=== PATIENT | female | born 1985 | race Caucasian/White ===

== ENCOUNTER → 2022-08-07 | Outpatient (CLI) | payer BC ==
[2022-08-07 16:16] VITALS: BP 133/84; PULSE 93; TEMP 98.8; BMI 36.0
--- NOTE | 2022-08-07 16:25 | P.HPBAR ---
Bariatric H&P - History & Physicial H&P Date: 08/07/22 History & Physicial: Visit/CC: new patient Patient initial contact: Initial weight: Initial weight in pounds: Height: 5 ft 5.5 in Initial BMI: Last weight: Current weight: 99.79 kg Current weight in pounds: 220.00 Current BMI: 36.0 Gray body weight (based on NIH guidelines): 57.833 kg Excess body weight loss: The patient is a 36 year-old F who presents for Bariatric Assessment. She is looking for weight loss surgery. She has tried Nutri system, Oma Jean-Paul, supervised weight loss, Weight Watchers and counting calories. She has fibromyalgia. Highest weight is now. Most weight loss is 60 pounds. She is on Adipex equivalent. She reports feeling full faster with Xenacal. Mother is undergoing weight loss surgery. She is looking into the sleeve. She reports colits, heart condition, and troubles with her knees. She has heartburn. She reports occasional GERD and dysphagia. She denies abdominal surgery. Still has gallbaldder. No gallbladder problem in family. She had an ECHO in 2014. Past Medical History History of Any Multi-Drug Resistant Organisms: None Reported Smoking Status: Former smoker Surgical - Exam Vital Signs Temp Pulse BP 98.8 F 93 133/84 08/07/22 16:06 08/07/22 16:06 08/07/22 16:06 Bariatric Checklist Checklist: Plan: Checklist: EGD: 1. Hiatal hernia: 2. H. Pylori: HgbA1c: Vitamin D: Smoking: Primary care physician referral: Dr. Vargas Psychiatry clearance: Cardiology clearance: Sleep study: Diet journal: VTE risk score: VTE risk level: Rehab needs at discharge:
== END | disposition home or self-care (01) ==
LOC: BARWHC3 15:51
PROVIDERS: ATTEND Surgery Plastic and Reconstructive Surgery
DX: Z48.815 Encounter for surgical aftercare following surgery on the digestive system (principal)
CPT/HCPCS: 99213

== ENCOUNTER → 2022-08-17 | Outpatient (CLI) | payer BC ==
[2022-08-17 09:55] LABS: INR 0.9 (<1.2)
[2022-08-17 10:02] LABS: Partial Thromboplastin Time 21.9 sec (22.0-30.0)
[2022-08-17 16:19] LABS: HCT 37.3 % (37.2-46.3); HGB 11.7 g/dL (12.0-15.0); MCH 28.9 pg (27.0-32.0); MCHC 31.4 g/dL (32.0-37.0); MCV 92.1 fL (80.0-97.0); Mean Platelet Volume 10.7 fL (9.5-12.2); NRBC Per 100 WBC 0 /100 WBCS (0.0-0.0); Platelet Count 264 X 10*3/uL (140-440); RBC 4.05 X 10*6/uL (4.10-5.20); RDW 13.6 % (11.5-14.5); WBC 6.14 X 10*3/uL (4.50-10.00)
[2022-08-17 18:06] LABS: Chol/HDL Ratio 2.89 Ratio; LDL Cholesterol,Calculated 105.7 mg/dL (0.0-131.0); Prealbumin 21.5 mg/dL (18.0-42.0); VLDL Calculation 16.74 mg/dL (5.00-40.00)
[2022-08-17 18:17] LABS: ALT 14 U/L (8-44); AST 19 U/L (13-35); African American GFR (CKD) 78.2 (60.0-200.0); Albumin 4.2 g/dL (3.8-4.9); Albumin/Globulin Ratio 1.77 (1.60-3.17); Alkaline Phosphatase 67 U/L (41-126); Blood Urea Nitrogen 10.6 mg/dL (9.0-27.0); Carbon Dioxide 22.8 mmol/L (20.0-27.5); Chloride 106 mmol/L (96-109); Ferritin 11.8 ng/mL (10.0-291.0); Globulin 2.4 g/dL (1.6-3.3); Glucose 82 mg/dL (70-110); Iron 42 ug/dL (50-170); Non-African American GFR(CKD) 67.5 (60.0-200.0); Phosphorus 2.9 mg/dL (2.4-5.1); Potassium 3.8 mmol/L (3.5-5.5); Sodium 141 mmol/L (135-145); Total Iron Binding Capacity 381 ug/dL (228-460); Total Protein 6.5 g/dL (6.2-8.2)
[2022-08-19 08:17] LABS: Anabasine Urine <2.0 ng/mL (<2.0)
[2022-08-19 12:12] LABS: Zinc, Serum 80 ug/dL (60-130)
[2022-08-20 08:29] LABS: Vitamin A 61 ug/dL (38-106)
== END | disposition home or self-care (01) ==
LOC: LABWHC1 08:47
PROVIDERS: ATTEND Surgery Plastic and Reconstructive Surgery
DX: Z71.51 Drug abuse counseling and surveillance of drug abuser (principal); I49.8 Other specified cardiac arrhythmias; T56.894A Toxic effect of other metals, undetermined, initial encounter; E66.01 Morbid (severe) obesity due to excess calories; D50.8 Other iron deficiency anemias; K91.2 Postsurgical malabsorption, not elsewhere classified; E45 Retarded development following protein-calorie malnutrition; E55.9 Vitamin D deficiency, unspecified; K74.1 Hepatic sclerosis; N19 Unspecified kidney failure; K50.90 Crohn's disease, unspecified, without complications
CPT/HCPCS: 84255; 84134; 84425; 80061; 80053; 82607; 82728; 82525; 82746; 83540; 83550; 83735; 84100; 84443; 84590; 84630; 85027; 85610; 85730; 82306; 80323; 83970; 83036; 80307; 93005; 36415; G0482

== ENCOUNTER 2022-09-02 07:43 | Day surgery (SDC) | payer BC ==
[2022-08-28 13:31] VITALS: BMI 34.4
[~2022-09-02 07:43] MED LIST: LACTATED RINGERS 1,000 ML IV SCH
[2022-09-02 08:23] VITALS: TEMP 98.3
--- NOTE | 2022-09-02 08:44 | P.GSHP ---
History of Present Illness H&P Date: 09/02/22 CHIEF COMPLAINT: GERD HISTORY OF PRESENT ILLNESS: The patient is a 37-year-old female who presents reports gastroesophageal reflux disease. Upper endoscopy was offered for further evaluation and management. PAST MEDICAL HISTORY: Please see list. PAST SURGICAL HISTORY: Please see list. MEDICATIONS: Please see list. ALLERGIES: Please see list. SOCIAL HISTORY: No illicit drug use FAMILY HISTORY: No reports of Crohn disease or ulcerative colitis. REVIEW OF ORGAN SYSTEMS: CONSTITUTIONAL: No reports of fevers or chills. GI: Denies any blood in stools or constipation. PHYSICAL EXAM: VITAL SIGNS: Stable GENERAL: Well-developed and pleasant in no acute distress. HEENT: No scleral icterus. Extraocular movements grossly intact. Moist buccal mucosa. NECK: Supple without lymphadenopathy. CHEST: Unlabored respirations. Equal bilateral excursions. CARDIOVASCULAR: Regular rate and rhythm. Distal 2+ pulses. ABDOMEN: Soft, nondistended. MUSCULOSKELETAL: No clubbing, cyanosis, or edema. ASSESSMENT: 1. Gastroesophageal reflux disease PLAN: 1. Recommend proceeding with an upper endoscopy Past Medical History Past Medical History: Asthma, Fibromyalgia, Supraventricular Tachycardia (SVT) Additional Past Medical History / Comment(s): Colitis History of Any Multi-Drug Resistant Organisms: None Reported Past Surgical History: Breast Surgery Additional Past Surgical History / Comment(s): Pre cancerous mole removed off head 2020. Breast implants 2019 Past Anesthesia/Blood Transfusion Reactions: No Reported Reaction Past Psychological History: ADD/ADHD, Anxiety, Bipolar, Depression, Panic Disorder Smoking Status: Former smoker Past Alcohol Use History: Occasional Past Drug Use History: None Reported - Past Family History Mother Family Medical History: No Reported History Father Family Medical History: Deep Vein Thrombosis (DVT) Medications and Allergies Home Medications Medication Instructions Recorded Confirmed Type ALPRAZolam [Xanax] 1 mg PO Q8H PRN 08/07/22 09/02/22 History ARIPiprazole [Abilify] 5 mg PO HS 08/07/22 09/02/22 History Biotin 5 mg PO DAILY 08/07/22 09/02/22 History Cholecalciferol [Vitamin D3 (10 10 mcg PO DAILY 08/07/22 09/02/22 History Mcg = 400 Iu)] Citalopram Hydrobromide [CeleXA] 20 mg PO HS 08/07/22 09/02/22 History Metoprolol Succinate [Metoprolol 25 mg PO DAILY 08/07/22 09/02/22 History Succinate ER] [place]-3/Dha/Epa/Fish Oil [Fish Oil 1 each PO DAILY 08/07/22 09/02/22 History 1,000 mg Softgel] Zonisamide [Zonegran] 300 mg PO HS 08/07/22 09/02/22 History clonazePAM [KlonoPIN] 0.5 mg PO HS PRN 08/07/22 09/02/22 History lamoTRIgine [LaMICtal] 100 mg PO DAILY 08/07/22 09/02/22 History Allergies Allergy/AdvReac Type Severity Reaction Status Date / Time No Known Allergies Allergy Verified 09/02/22 08:04 Surgical - Exam Vital Signs Temp Pulse Resp BP Pulse Ox 98.3 F 88 15 119/58 98 09/02/22 08:21 09/02/22 08:21 09/02/22 08:21 09/02/22 08:21 09/02/22 08:21
[2022-09-02] MEDS ORDERED: PROPOFOL 10 MG/ML 20 ML VIAL IV ONE (09:08)
[2022-09-02] MEDS ORDERED: LIDOCAINE 2% INJ 20 MG/ML (2 ML VIAL) ONE (09:08)
[2022-09-02 09:25] VITALS: RESP 16
--- NOTE | 2022-09-02 09:30 | P.PCN ---
Date of Procedure: 09/02/22 Description of Procedure: PREOPERATIVE DIAGNOSIS: Gastroesophageal reflux disease. Morbid obesity. POSTOPERATIVE DIAGNOSIS: Gastroesophageal reflux disease. Morbid obesity. Gastritis. Duodenitis OPERATION: Esophagogastroduodenoscopy with biopsies along antrum and duodenum SURGEON: Ghazal Marinelli MD ANESTHESIA: MAC. INDICATIONS: The patient is a 37-year-old female who presents with reflux disease. Benefits and risks of the procedure were described. Informed consent was obtained. DESCRIPTION: The patient was brought into the endoscopy suite and laid in the left lateral decubitus position. An Olympus gastroscope was passed along the posterior oropharynx down to the distal esophagus where the squamocolumnar junction was encountered at 37 cm from the incisors. The stomach was entered and no bile reflux was found. Additional findings are listed below. Biopsies with cold forceps were obtained of the antrum. The first through third portion of the duodenum was examined. Retroflexion of the scope confirmed Hill grade 2 lower esophageal valve. The squamocolumnar junction demonstrated LA grade B erosive esophagitis. The stomach was desufflated. The patient tolerated the procedure well. FINDINGS: Squamocolumnar junction 37 cm from the incisors. Diaphragmatic hiatus at 37 cm. Hill grade 2 lower esophageal valve. LA grade B erosive esophagitis. Active duodenitis. Biopsies obtained Chronic gastritis with recent bleed RECOMMENDATIONS: Upper endoscopy as needed. Plan - Discharge Summary Discharge Rx Participant: Yes New Discharge Prescriptions: Continue clonazePAM [KlonoPIN] 0.5 mg PO HS PRN PRN Reason: Anxiety ALPRAZolam [Xanax] 1 mg PO Q8H PRN PRN Reason: Anxiety Zonisamide [Zonegran] 300 mg PO HS Citalopram Hydrobromide [CeleXA] 20 mg PO HS ARIPiprazole [Abilify] 5 mg PO HS Cholecalciferol [Vitamin D3 (10 Mcg = 400 Iu)] 10 mcg PO DAILY lamoTRIgine [LaMICtal] 100 mg PO DAILY Metoprolol Succinate [Metoprolol Succinate ER] 25 mg PO DAILY [place]-3/Dha/Epa/Fish Oil [Fish Oil 1,000 mg Softgel] 1 each PO DAILY Biotin 5 mg PO DAILY Discharge Medication List ALPRAZolam [Xanax] 1 mg PO Q8H PRN 08/07/22 [History] ARIPiprazole [Abilify] 5 mg PO HS 11/16/22 [History] Biotin 5 mg PO DAILY 08/07/22 [History] Cholecalciferol [Vitamin D3 (10 Mcg = 400 Iu)] 10 mcg PO DAILY 08/07/22 [History] Citalopram Hydrobromide [CeleXA] 20 mg PO HS 08/07/22 [History] Metoprolol Succinate [Metoprolol Succinate ER] 25 mg PO DAILY 08/07/22 [History] [place]-3/Dha/Epa/Fish Oil [Fish Oil 1,000 mg Softgel] 1 each PO DAILY 08/07/22 [History] Zonisamide [Zonegran] 300 mg PO HS 08/07/22 [History] clonazePAM [KlonoPIN] 0.5 mg PO HS PRN 08/07/22 [History] lamoTRIgine [LaMICtal] 100 mg PO DAILY 08/07/22 [History] [place] [facility]Ref[place] [facility] [place] [place] [facility] [place] Patient Instructions/Handouts: GERD (Gastroesophageal Reflux Disease) (DC), Diet for Stomach Ulcers and Gastritis (ED) Discharge Disposition: HOME SELF-CARE
[2022-09-02 09:41] VITALS: BP 116/69; PULSE 72
== END 2022-09-02 10:08 | disposition home or self-care (01) ==
LOC: ORWHC2ENDO 07:43
PROVIDERS: ATTEND Surgery Plastic and Reconstructive Surgery
DX: K29.50 Unspecified chronic gastritis without bleeding (principal); K21.00 Gastro-esophageal reflux disease with esophagitis, without bleeding; E66.01 Morbid (severe) obesity due to excess calories; K29.80 Duodenitis without bleeding; M79.7 Fibromyalgia; F41.9 Anxiety disorder, unspecified; F32.A Depression, unspecified; J45.909 Unspecified asthma, uncomplicated; Z85.820 Personal history of malignant melanoma of skin; Z79.899 Other long term (current) drug therapy; Z87.891 Personal history of nicotine dependence; Z86.59 Personal history of other mental and behavioral disorders; Z82.49 Family history of ischemic heart disease and other diseases of the circulatory system
CPT/HCPCS: 81025; 88305; 43239; J2704; J2001

== ENCOUNTER → 2022-09-23 | Outpatient (CLI) | payer BC ==
[2022-09-23 10:36] VITALS: BMI 37.8
== END ==
LOC: BARWHC3 08:49
PROVIDERS: ATTEND Surgery Plastic and Reconstructive Surgery
DX: Z71.3 Dietary counseling and surveillance (principal); E66.01 Morbid (severe) obesity due to excess calories; Z68.37 Body mass index [BMI] 37.0-37.9, adult
CPT/HCPCS: 97804

== ENCOUNTER → 2022-11-01 | Outpatient (CLI) | payer BC ==
--- NOTE | 2022-11-01 09:46 | P.BASOAP ---
Subjective Progress Note Date: 11/01/22 Doing well. Recommend return to work after 2 weeks due to compromised immune system. Recommend wearing masks. Adequate IV fluid hydration. Follow-up in 1 week. Assessment/Plan Plan: Date: Initial Weight: 99.79 kg Initial BMI: Current Weight: Current BMI: Type of Surgery: Total Volume in Band: Previous Volume: Volume Removed: Volume Added: Band Size:
--- NOTE | 2022-11-01 09:48 | P.PN ---
Progress Note - Text Progress Note Date: 11/01/22 To Whom It May Concern: Naina Copeland is under my general surgical care. Patient is unable to work during her time of convalescence. She may return to work with exertional restriction of 10 pounds, 11/11/2022. She will be off exertional restrictions 11/25/2022. Feel free to contact us if questions. Regards, Ghazal Marinelli MD FACS
[2022-11-01 10:16] VITALS: BP 129/85; PULSE 67; RESP 13; TEMP 99.7
== END ==
LOC: BARWHC3 08:41
PROVIDERS: ATTEND Surgery Plastic and Reconstructive Surgery
DX: E66.01 Morbid (severe) obesity due to excess calories (principal); Z53.9 Procedure and treatment not carried out, unspecified reason
CPT/HCPCS: 99211

== ENCOUNTER → 2022-11-27 | Outpatient (CLI) | payer BC ==
[2022-11-27 17:34] VITALS: BP 143/89; PULSE 81; TEMP 99.1; BMI 31.8
--- NOTE | 2022-11-27 18:08 | P.BASOAP ---
Subjective Progress Note Date: 11/27/22 DATE OF SERVICE: 11/27/22 CHIEF COMPLAINT: Status post sleeve gastrectomy HISTORY OF PRESENT ILLNESS: The patient is a 37-year-old female status post sleeve gastrectomy, 10/29/2022. She is 1 month out. She has lost 15 pounds. She was 227 pounds. No heartburn. She is eating better. She had dysphagia that is improving. At height of 5 feet 5 inches, her ideal body weight is 149 pounds. Her highest weight is 227 pounds, body mass index 37.3. She comes in 194 pounds from 201 pounds 3 weeks ago. She has lost 7 pounds in 3 weeks. She is 45 pounds overweight. PHYSICAL EXAM: VITAL SIGNS: Height 5 foot 5.5 inches, 194 pounds, BMI 31.8 Vital Signs Temp 99.1 F 11/27/22 17:31 Pulse 81 11/27/22 17:31 Resp BP 143/89 11/27/22 17:31 Pulse Ox FiO2 GENERAL: Well-developed in no acute distress. HEENT: No scleral icterus. Extraocular movements grossly intact. Hears conversational speech. No nasal drainage. NECK: Supple without lymphadenopathy. CHEST: Nonlabored respirations with equal bilateral excursions. CARDIOVASCULAR: Regular rate and regular rhythm. Distal 2+ pulses. ABDOMEN: Obese, soft, nontender, nondistended. Incisions are granulated. MUSCULOSKELETAL: No clubbing, cyanosis. NEURO: No focal or lateralizing signs. Cranial nerves 2 through 12 grossly within normal limits. PSYCH: Appropriate affect. Alert and oriented to person, place and time. SKIN: Good skin turgor. Well perfused. ASSESSMENT: 1. Morbid obesity due to excess calories 2. Body mass index 37.3 3. Depressive disorder 4. Supraventricular tachycardia 5. Generalized anxiety disorder 6. Osteoarthritis of the lower back 7. Osteoarthritis of the right hip 8. Osteoarthritis of the bilateral knees. 9. Status post sleeve gastrectomy PLAN: 1. Recommened bariatric labs 2. Protein intake 75 grams daily advised. 3. Start multivitamins 4. May resume full activities without restriction. Objective - Vital Signs Vital signs: Vital Signs Temp 99.1 F 11/27/22 17:31 Pulse 81 11/27/22 17:31 Resp BP 143/89 11/27/22 17:31 Pulse Ox FiO2 Intake & Output 11/26/22 11/27/22 11/27/22 18:59 06:59 18:59 Weight 88.088 kg Assessment/Plan Plan: Date: 11/27/22 Initial Weight: 99.79 kg Initial BMI: 36.0 Current Weight: 88.088 kg Current BMI: 31.8 Type of Surgery: Total Volume in Band: Previous Volume: Volume Removed: Volume Added: Band Size:
== END ==
LOC: BARWHC3 16:56
PROVIDERS: ATTEND Surgery Plastic and Reconstructive Surgery
DX: E66.01 Morbid (severe) obesity due to excess calories (principal); F41.9 Anxiety disorder, unspecified; F33.0 Major depressive disorder, recurrent, mild; M16.11 Unilateral primary osteoarthritis, right hip; Z68.37 Body mass index [BMI] 37.0-37.9, adult; Z68.31 Body mass index [BMI] 31.0-31.9, adult
CPT/HCPCS: 97803; 99211

== ENCOUNTER → 2022-12-23 | Outpatient (CLI) | payer BC ==
[2022-12-23 17:20] LABS: Partial Thromboplastin Time 24.5 sec (22.0-30.0); Prothrombin Time 10.5 sec (9.0-12.0)
[2022-12-24 05:44] LABS: HCT 39.3 % (37.2-46.3); HGB 12.5 g/dL (12.0-15.0); MCH 29.6 pg (27.0-32.0); MCHC 31.8 g/dL (32.0-37.0); MCV 93.1 fL (80.0-97.0); Mean Platelet Volume 11.4 fL (9.5-12.2); NRBC Per 100 WBC 0 /100 WBCS (0.0-0.0); Platelet Count 220 X 10*3/uL (140-440); RBC 4.22 X 10*6/uL (4.10-5.20); RDW 13.1 % (11.5-14.5); WBC 6.31 X 10*3/uL (4.50-10.00)
[2022-12-24 06:09] LABS: Chol/HDL Ratio 3.01 Ratio; LDL Cholesterol,Calculated 92.5 mg/dL (0.0-131.0); Prealbumin 19.7 mg/dL (18.0-42.0)
[2022-12-24 06:21] LABS: % Iron Saturation 19.05 (12.00-45.00); ALT 15 U/L (8-44); AST 16 U/L (13-35); African American GFR (CKD) 95.7 (60.0-200.0); Albumin 4.5 g/dL (3.8-4.9); Albumin/Globulin Ratio 2.02 (1.60-3.17); Alkaline Phosphatase 48 U/L (41-126); BUN/Creat Ratio 11.32 Ratio (12.00-20.00); Blood Urea Nitrogen 10.1 mg/dL (9.0-27.0); Calcium 9.8 mg/dL (8.7-10.3); Carbon Dioxide 24.6 mmol/L (20.0-27.5); Chloride 102 mmol/L (96-109); Globulin 2.3 g/dL (1.6-3.3); Glucose 89 mg/dL (70-110); Iron 52 ug/dL (50-170); Magnesium 1.9 mg/dL (1.5-2.4); Non-African American GFR(CKD) 82.6 (60.0-200.0); Phosphorus 3.3 mg/dL (2.4-5.1); Potassium 4.1 mmol/L (3.5-5.5); Sodium 140 mmol/L (135-145); Total Iron Binding Capacity 273 ug/dL (228-460); Total Protein 6.8 g/dL (6.2-8.2)
[2022-12-24 13:06] LABS: Zinc, Serum 65 ug/dL (60-130)
== END | disposition home or self-care (01) ==
LOC: LABWHC1 16:01
PROVIDERS: ATTEND Surgery Plastic and Reconstructive Surgery
DX: E66.01 Morbid (severe) obesity due to excess calories (principal); E89.1 Postprocedural hypoinsulinemia; D50.8 Other iron deficiency anemias; K91.2 Postsurgical malabsorption, not elsewhere classified; E44.0 Moderate protein-calorie malnutrition; E44.1 Mild protein-calorie malnutrition; E45 Retarded development following protein-calorie malnutrition; E46 Unspecified protein-calorie malnutrition; E55.9 Vitamin D deficiency, unspecified; K74.1 Hepatic sclerosis; N19 Unspecified kidney failure; T56.894A Toxic effect of other metals, undetermined, initial encounter; K50.90 Crohn's disease, unspecified, without complications
CPT/HCPCS: 36415; 80053; 80061; 82306; 82525; 82607; 82728; 82746; 83036; 83540; 83550; 83735; 83970; 84100; 84134; 84255; 84425; 84443; 84590; 84630; 85027; 85610; 85730

== ENCOUNTER → 2023-01-29 | Outpatient (CLI) | payer BC ==
[2023-01-29 16:42] VITALS: BP 115/79; PULSE 78; TEMP 98.1; BMI 29.3
--- NOTE | 2023-01-29 17:01 | P.PN ---
Progress Note - Text Progress Note Date: 01/29/23 Patient left without being seen.
== END | disposition home or self-care (01) ==
LOC: BARWHC3 16:28
PROVIDERS: ATTEND Surgery Plastic and Reconstructive Surgery
DX: Z53.9 Procedure and treatment not carried out, unspecified reason (principal)
CPT/HCPCS: 97803; 99211

== ENCOUNTER → 2023-05-14 | Outpatient (CLI) | payer BC ==
[2023-05-14 16:58] VITALS: BP 125/78; PULSE 74; TEMP 98.7
[2023-05-14 17:15] VITALS: BMI 25.7
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
== END ==
LOC: BARWHC3 15:56
PROVIDERS: ATTEND Surgery Plastic and Reconstructive Surgery
DX: Z53.9 Procedure and treatment not carried out, unspecified reason (principal)
CPT/HCPCS: 97803; 99211